=== PATIENT | female | born 1930 | race African-American/Black ===

== ENCOUNTER 2020-02-14 11:52 | Inpatient (IN) | payer MEDICARE, OTHER ==
[~2020-02-14] VITALS: Ht 157.5 cm; Wt 44.5 kg
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
[2020-02-14] MEDS ORDERED: ZYPREXA (14:00)
[2020-02-14] MEDS ORDERED: SEROQUEL (14:00)
[2020-02-14] MEDS ORDERED: DEPAKOTE (14:00)
[2020-02-14] MEDS ORDERED: ACETAMINOPHEN 325 MG TABLET PO PRN (14:30)
[2020-02-14] MEDS ORDERED: TEMAZEPAM 7.5 MG CAPSULE PO PRN (14:30)
[2020-02-14] MEDS ORDERED: MAG HYDROX/AL HYDROX/SIMETH 30 ML UDC PO PRN (14:30)
[2020-02-14] MEDS ORDERED: MAGNESIUM HYDROXIDE 30 ML UDC PO PRN (14:30)
[2020-02-14] MEDS ORDERED: BLOOD SUGAR DIAGNOSTIC 1 EACH STRIP IN ONE (14:30)
--- NOTE | 2020-02-14 15:00 | NUR ---
RN-CO: DR PANG GAVE ADMITTING ORDERS.
[2020-02-14 15:30] VITALS: BP 151/63
[2020-02-14 16:00] VITALS: BP 151/63
--- NOTE | 2020-02-14 16:31 | NUR ---
RN-CO: PATIENT REFUSED MRSA SWAB, SHE IS ANGRY AND COMBATIVE .
[2020-02-14] MEDS: LORAZEPAM 0.5 MG TABLET PO PRN (20:14)
--- NOTE | 2020-02-14 20:14 | NUR ---
GPS RN NOTE: ANXIETY/AGITATION PATIENT IS AGITATED, YELLING, SCREAMING, ANXIOUS, PARANOID, RESTLESS, HYPERVERBAL AT THIS TIME, CURSING STAFF. PRN ATIVAN 0.5 MG , PO GIVEN, WILL CONTINUE TO MONITOR .
--- NOTE | 2020-02-14 20:25 | NUR ---
RN NOTES: PT. IS VERY UNCOOERTIVE SCREMING YELLING ,RESTLESS, CURSING STAFF ATIVAN WAS GIVEN BUT PT. SPAT OUT ATIVAN , WILL CONTINUE TO ENCOURAGE THE PATIENT TO CALM DOWN BY REDIRECTING HER OFFERED SNACKS AND JUICES BUT PT. REFUSED, VERY NON COMPLIANT WITH CARE AND MEDICATION.
[2020-02-14 20:36] VITALS: BP 154/63
--- NOTE | 2020-02-14 20:50 | NUR ---
NURSE NOTES: ATIVAN MEDICATION WASTED ON THE OMNICELL SINCE PATIENT SPIT THE MEDICATION OUT. WITNESSED BY ODIN STEVENS- CHARGE NURSE FOR THIS SHIFT. Addendum: 02/14/20 at 2103 by FADY HOLMAN RN CHARGE NURSE HILDA NEWBY ,UNABLE TO COSIGN ON OMNICELL FOR WASTE MEDS ATIVAN 0.5 MG , 1 TAB.
[2020-02-14 22:07] VITALS: BP 128/65
--- NOTE | 2020-02-15 03:57 | NUR ---
RN NOTES:PT. REFUSED FULL BODY SKIN ASSESSMENT, AND PICTURES TAKEN PT. REFUSED MRSA SWAB , PT. REFUSED URINE SPECIMEN , ENCOURAGE X3 PT. STRONGLY REFUSED , PER PT. I NO NEED TO CHECK ,I AM OK . PT. BEHAVIOR VERY UNCCOERTIVE YELLS ,AGGRESSIVE , WILL CONTINUE WITH CARE.
--- NOTE | 2020-02-15 07:16 | NUR ---
RN NURSE NOTES: NOTIFIED PHARMACY REGARDING ATIVAN MEDICATION WASTED ON THE OMNICELL PATIENT SPIT THE MEDICATION OUT AND NON ADMINISTER, CHARGE NURSE HILDA NEWBY ,UNABLE TO COSIGN ON OMNICELL FOR WASTE MEDS ATIVAN 0.5 MG , 1 TAB ,.
[2020-02-15 08:00] VITALS: BP 129/67
--- NOTE | 2020-02-15 13:20 | NUR ---
RN NOTES COLLECTED UA CLEAN CATCH, AND MRSA OF NARES SPECIMEN, CALLED LAB FOR SPINNER FRAME.
--- NOTE | 2020-02-15 15:00 | NUR ---
rn notes patient refused lab work x3. Patient state "blood i can not give, because of against my presybeterian".
[2020-02-15 15:39] LABS: APPEARANCE,URINE CLEAR (CLEAR); BILIRUBIN,URINE NEGATIVE (NEGATIVE); BLOOD, URINE NEGATIVE Ery/uL (NEGATIVE); COLOR,URINE YELLOW (YELLOW); KETONES,URINE TRACE (NEGATIVE); LEUKOCYTE ESTERASE ,URINE NEGATIVE (NEGATIVE); NITRITE, URINE NEGATIVE (NEGATIVE); PROTEIN,URINE NEGATIVE (NEGATIVE); UGLUCOSE NEGATIVE (NEGATIVE); UROBILINOGEN,URINE 0.2 EU/dL (0.2)
[2020-02-15 15:50] LABS: BACTERIA,URINE N0 /HPF (None Seen); RBC,URINE 0-2 /HPF (0-2); WBC,URINE 0-2 /HPF (0-3)
[2020-02-15 16:00] VITALS: BP 157/70
[2020-02-15 20:17] VITALS: BP 135/70
[2020-02-15] MEDS: DIVALPROEX SODIUM 125 MG CAP.SPRINK PO SCH (20:53)
[2020-02-15] MEDS: OLANZAPINE 2.5 MG TABLET PO SCH (22:03)
[2020-02-16 08:00] VITALS: BP 123/62
[2020-02-16] MEDS: DIVALPROEX SODIUM 125 MG CAP.SPRINK PO SCH ×2 (08:36→21:00)
--- NOTE | 2020-02-16 12:56 | NUR ---
Initial Discharge Plan: Pt currently resides in her apartment located at [address] [place], [place] [address]n [facility] [place] [address]; ([phone]). Per pt, she would like to live in [place]. Per Faby ([phone]), pts caregiver, pt needs to be in a SNF. SW will work with the pt and the MD regarding appropriate discharge planning. SW will form a safe and proper discharge plan.
--- NOTE | 2020-02-16 12:59 | NUR ---
Caregiver Contact: LAURA called the pts caregiver, Faby ([phone]), who stated that she has only been the caregiver for 3 weeks as she lived on the same floor as the pt. She stated that the pt would benefit from being in a Dementia unit and she stated that the pt wants to be in the [facility]. LAURA recommended [facility] due to those reasons but stated that she will need to speak to the MD.
[2020-02-16] MEDS: LORAZEPAM 0.5 MG TABLET PO PRN (14:03)
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
[2020-02-16 20:21] VITALS: BP 167/69
[2020-02-16 21:00] VITALS: BP 158/68
--- NOTE | 2020-02-16 21:17 | NUR ---
GPS RN NOTES: PATIENT INITIALLY TOOK HER MEDICATIONS- DEPAKOTE- HOWEVER, PATIENT TRIED TO CHEEK IT. WHEN MORTGAGE LENDER NOTICED, PATIENT SPIT THE MEDICATION OUT. SO MORTGAGE LENDER, TRIED TO ASK THE MEDICATION SO IT CAN BE WASTED PROPERLY, PATIENT TRIED TO HIDE IT IN HER HANDS AND COVER IT WITH HER SHEETS. ANOTHER NURSE CAME IN (NATY) TO HELP REMOVED THE MEDICINE AWAY FROM PATIENT'S POSSESSION. PER PATIENT "YOU GUYS GIVE IT TO ME, SO THIS IS MINE NOW!" NATY HOWEVER, RECOVERED THE MEDICATION AND WASTED IT PROPERLY IN THE BIN.
[2020-02-16] MEDS: OLANZAPINE 2.5 MG TABLET PO SCH (22:00)
--- NOTE | 2020-02-17 04:48 | NUR ---
GPS RN NOTES: PATIENT WOKE UP FROM SLEEP AND APPROACHED THE RESERVATIONIST ASKING FOR THE DATE AND TIME. SHE APPEARS CONFUSED, HOWEVER SHE WAS NICE AND KIND AT THIS MOMENT. REALITY ORIENTATION DONE. SHE REQUESTED FOR SOME SNACKS- PROVIDED SOME SALTINE CRACKERS. WILL CONTINUE TO MONITOR PATIENT FOR MOOD, SAFETY AND BEHAVIOR.
[2020-02-17 08:00] VITALS: BP 128/60
[2020-02-17] MEDS: DIVALPROEX SODIUM 125 MG CAP.SPRINK PO SCH ×3 (08:28→21:00)
--- NOTE | 2020-02-17 09:00 | NUR ---
RN NOTE- PT VERBALLY AGGRESSIVE SWEARING STATES "IM NOT TAKING THE STUPID MEDICINE." REFUSES RX THIS MORNING. OPPOSITIONAL. ABRASIVE. PARANOID DELUSIONAL. PO INTAKE POOR THIS MORNING. WITHDRAWN
--- NOTE | 2020-02-17 15:33 | NUR ---
GROUP NOTE: Group Topic: Depression SW invited patient to participate in group, however patient refused to join at this time due to not wanting to get out of bed.
[2020-02-17 16:00] VITALS: BP 126/62
--- NOTE | 2020-02-17 16:40 | NUR ---
RN-Co: DR PANG ORDERED TO DISCHARGE THE PATIENT TOMORROW 02/18/20 AT 5:30 AM AND DISCONTINUE HOLD ON THE SAME DATE AND TIME NOTED. PATIENT WILL BE GOING HOME WITH A TAXI VOUCHER GIVEN TO HER BY THE STAFF IN ORDER TO TAKE HER TO [employer]. TICKET WAS ALSO PRINTED AND GIVEN TO HER BY ANNE-MARIE SANCHEZ.COPY IN THE CHART. SHE IS ALERT AND ORIENTED X 4. ABLE TO MAKE DECISION FOR HERSELF AND SHE CAN TAKE CARE OF HERSELF. SHE DENIES SUICIDAL AND HOMICIDAL IDEATIONS. SHE DENIES AUDITORY AND VISUAL HALLUCINATIONS. HER AFFECT IS APPROPRIATE AND BRIGHT WHEN APPROACH. PRESCRIPTION WRITTEN BY DR PANG WILL BE GIVEN AND EXPLAINED TO HER. Addendum: 02/17/20 at 1754 by MARIS MACDONALD RN RN-CO: ERROR IN CHARTING
--- NOTE | 2020-02-17 17:13 | NUR ---
RN NOTE- STANDING BY PTS DOOR, STARTED YELLING AT ME THAT IM 'RUDE, DON'T BELONG IN HER ROOM' . TRIED TO CLOSE DOOR ON MY HAND. I REDIRECTED HER. ESCALATED PT YELLING. I REMOVED MYSELF FROM HER PRESENCE. PT SPOKE W MANUAL WRITER ABOUT MY 'BEHAVIOR' PT ULTIMATELY CALMED
[2020-02-17 19:59] VITALS: BP 123/60
[2020-02-17] MEDS: OLANZAPINE 2.5 MG TABLET PO SCH (21:27)
--- NOTE | 2020-02-17 21:27 | NUR ---
GPS RN NOTE: PT. REFUSED SCHEDULED 2100 DEPAKOTE 125 MG AND 2200 ZYPREXA 2.5 MG. STATES "I DON'T BELIEVE IN MEDICATIONS." EXPLAINED RISKS AND BENEFITS. OFFERED 3 TIMES AND PT. STILL REFUSED. WILL CONTINUE TO MONITOR FOR SAFETY AND BEHAVIOR
[2020-02-18 08:00] VITALS: BP 123/56
[2020-02-18] MEDS: DIVALPROEX SODIUM 125 MG CAP.SPRINK PO SCH ×2 (08:18→21:09)
--- NOTE | 2020-02-18 08:45 | NUR ---
PATIENT REFUSED AM MEDICATION, EXPLAINED RISKS AND BENEFITS X3 , PATIENT CONT REFUSING, NO S/SX DISTRESS NOTED, WILL CONT TO MONITOR FOR SAFETY AND BEHAVIOR Q15 MIN
--- NOTE | 2020-02-18 15:50 | NUR ---
Group Note: SW encouraged the pt to attend group therapy on 02/18/20 on the topic of discharge planning. Pt is not appropriate for group at this time as she is confused and disorganized. Pt appears to be in a labile mood and presents with an anxious affect.
[2020-02-18 16:00] VITALS: BP 130/56
[2020-02-18 19:44] VITALS: BP 125/61
[2020-02-18 19:58] VITALS: BP 125/61
[2020-02-18] MEDS: OLANZAPINE 2.5 MG TABLET PO SCH (22:07)
--- NOTE | 2020-02-18 22:07 | NUR ---
GPS RN NOTE: MED COMPLAINT PATIENT TOOK HER DEPAKOTE & ZYPREXA SCHEDULED. PATIENT REFUSED TO TAKE MEDS AT FIRST & STATED," THESES MEDICINES ARE NOT FOR ME, THEY MAKE ME TO FORGET." EXPLANATIONS & ENCOURAGEMENT PROVIDED & PATIENT AGREED TO TAKE HER MEDICINES & TOLERATED WELL. OFFERED JUICE & SNACK BUT PT PREFERRED TO DRINK JUICE ONLY AT THIS TIME. WILL CONTINUE TO MONITOR FOR ANY CHANGES.
[2020-02-19 08:30] VITALS: BP 115/59
--- NOTE | 2020-02-19 08:30 | NUR ---
KARTHIKEYAN RN NOTES PT FITST REFUSED MEDS AND THEN WAS COMPLAINT
[2020-02-19] MEDS: DIVALPROEX SODIUM 125 MG CAP.SPRINK PO SCH ×4 (08:53→16:51)
--- NOTE | 2020-02-19 12:42 | NUR ---
KARTHIKEYAN RN NOTES PT REFUSED HER 13:00 MEDS
[2020-02-19] MEDS ORDERED: OLANZAPINE 2.5 MG TABLET PO SCH (13:00)
[2020-02-19] MEDS ORDERED: SERTRALINE HCL 25 MG TABLET PO SCH (13:00)
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
--- NOTE | 2020-02-19 14:25 | NUR ---
GROUP NOTE: Topic: Adapting to our environment. SW encouraged patient to participate in group therapy. Patient presents with labile mood and unable to participate in group therapy at this time.
[2020-02-19 16:00] VITALS: BP 134/54
--- NOTE | 2020-02-19 16:52 | NUR ---
KARTHIKEYAN RN NOTES PT IS REFUSING HER MEDS
[2020-02-19] MEDS: OLANZAPINE 2.5 MG TABLET PO SCH (22:00)
--- NOTE | 2020-02-19 22:17 | NUR ---
GPS RN NOTES: PATIENT REFUSED HER MEDICATION ON SCHEDULE- ZYPREXA 2.5 MG- NURSE INFORMED HER THAT SHE TOOK IT THE NIGHT PRIOR. ACCORDING TO THE PATIENT "OH, I KNOW I TOOK IT YESTERDAY, BUT I WANNA TRY TO SEE MYSELF, HOW IT GOES WITH OUT IT". IT IS THEN CHARTED NON ADMINISTERED ON THE EMAR.
[2020-02-20 08:00] VITALS: BP 110/68
[2020-02-20] MEDS: DIVALPROEX SODIUM 125 MG CAP.SPRINK PO SCH ×3 (08:20→17:02)
--- NOTE | 2020-02-20 08:20 | NUR ---
GPS/RN PT REFUSED DEPAKOTE 125MG PO SCHEDULED FOR 0900. OFFERED X3
[2020-02-20] MEDS: HALOPERIDOL 1 MG TABLET PO SCH ×2 (12:27→13:35)
[2020-02-20] MEDS: HALOPERIDOL LACTATE INJ 5 MG/ML VIAL IM PRN (13:21)
--- NOTE | 2020-02-20 13:35 | NUR ---
GPS/RN PT AGREED TO TAKE HALDOL 1MG PO. INJECTABLE HALDOL WASTED
--- NOTE | 2020-02-20 15:09 | NUR ---
GROUP NOTE: Topic: Learning coping skills. agricultural service worker attempted to invite patient to participate in group. Patient presented disorganized and disoriented and unable to engage in a meaningful conversation.
[2020-02-20 16:00] VITALS: BP 156/56
[2020-02-20 21:14] VITALS: BP 120/66
[2020-02-21 08:00] VITALS: BP 125/68
[2020-02-21] MEDS: HALOPERIDOL 1 MG TABLET PO SCH ×2 (08:39→16:54)
[2020-02-21] MEDS: DIVALPROEX SODIUM 125 MG CAP.SPRINK PO SCH ×3 (08:39→16:54)
[2020-02-21] MEDS: HALOPERIDOL LACTATE INJ 5 MG/ML VIAL IM PRN ×2 (08:39→17:19)
--- NOTE | 2020-02-21 12:23 | NUR ---
GPS/RN PT REFUSED ALL PO MEDS IN AM(HALDOL IM WAS GIVEN ORDERED) AND REFUSED DEPAKOTE SCHEDULED FOR 1300 WELL. OFFERED X3
[2020-02-21 16:00] VITALS: BP 140/65
--- NOTE | 2020-02-21 17:41 | NUR ---
GPS/RN PT REFUSED 1700 PO MEDS. OFFERED X3. HALDOL IM GIVEN INSTEAD.
[2020-02-21 21:03] VITALS: BP 149/62
[2020-02-22 08:00] VITALS: BP 142/59
[2020-02-22] MEDS: HALOPERIDOL LACTATE INJ 5 MG/ML VIAL IM PRN ×2 (08:26→17:42)
[2020-02-22] MEDS: DIVALPROEX SODIUM 125 MG CAP.SPRINK PO SCH ×3 (08:26→17:00)
[2020-02-22] MEDS: HALOPERIDOL 1 MG TABLET PO SCH ×2 (08:26→17:00)
[2020-02-22] MEDS: ENSURE ENLIVE 237 ML LIQUID (VANILLA) PO SCH ×2 (13:30→17:42)
--- NOTE | 2020-02-22 13:45 | NUR ---
GPS/RN PT REFUSED 1300 MEDS OFFERED X3
[2020-02-22 15:55] VITALS: BP 113/52
[2020-02-22 20:00] VITALS: BP 128/59
--- NOTE | 2020-02-23 06:52 | NUR ---
GPS RN NOTES: PATIENT IN THE ROOM, AWAKE, APPEARS RESTED. HAND BANDER APPROACHED IF SHE CAN TAKE PICTURES ON HER RIGHT ELBOW- PER PATIENT THE NURSE TOOK PICTURES OF HER ELBOW ALREADY AND SHE DOES NOT WANNA DO IT AGAIN. HAND BANDER THEN CONFIRMED- IT WAS PLACED IN THE CHART THAT THE PREVIOUS NURSE TOOK PICTURE OF THAT SAID SPOT.
[2020-02-23 08:00] VITALS: BP 141/55
[2020-02-23] MEDS: HALOPERIDOL 1 MG TABLET PO SCH ×2 (08:47→16:44)
[2020-02-23] MEDS: DIVALPROEX SODIUM 125 MG CAP.SPRINK PO SCH ×2 (08:47→16:44)
[2020-02-23] MEDS: ENSURE ENLIVE 237 ML LIQUID (VANILLA) PO SCH ×3 (08:47→16:50)
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
--- NOTE | 2020-02-23 15:35 | NUR ---
Group Note: SW invited patient to participate in group therapy to discuss the topic of Problem Solving. Patient presents confused and with disorganized thought process. SW encouraged patient to participate in group and interact with peers. Patient remain isolative and refused to engage.
[2020-02-23 16:00] VITALS: BP 150/55
[2020-02-23 20:00] VITALS: BP 148/52
--- NOTE | 2020-02-24 05:53 | NUR ---
GPS RN NOTE PATIENT REFUSED AM LABS X 3 & GOT CANCELLED.
--- NOTE | 2020-02-24 06:48 | NUR ---
GPS RN CLOSING NOTE PATIENT SLEPT WELL AT NIGHT. NO CHANGE OF CONDITION NOTED.SAFETY PRECAUTIONS IN PLACE. WILL ENDORSE TO AM RN FOR CONTINUITY OF CARE.
[2020-02-24 08:00] VITALS: BP 128/52
[2020-02-24] MEDS: HALOPERIDOL 1 MG TABLET PO SCH ×2 (08:29→16:43)
[2020-02-24] MEDS: DIVALPROEX SODIUM 125 MG CAP.SPRINK PO SCH ×2 (08:29→16:43)
[2020-02-24] MEDS: ENSURE ENLIVE 237 ML LIQUID (VANILLA) PO SCH ×3 (08:31→16:46)
--- NOTE | 2020-02-24 15:51 | NUR ---
Group Note: SW encouraged pt to attend group therapy on 02/24/20 on the topic of discharge planning. Pt refused to attend the group but was willing to participate in individual. SW informed her that the plan is to send the pt to a prison in [place] and the pt became content and stated that she knows that area very well. LAURA stated that she will keep her informed.
[2020-02-24 16:00] VITALS: BP 142/60
[2020-02-24 20:11] VITALS: BP 146/55
[2020-02-25 08:00] VITALS: BP 119/58
[2020-02-25] MEDS: DIVALPROEX SODIUM 125 MG CAP.SPRINK PO SCH ×2 (09:18→16:48)
[2020-02-25] MEDS: HALOPERIDOL 1 MG TABLET PO SCH ×2 (09:18→16:48)
[2020-02-25] MEDS: ENSURE ENLIVE 237 ML LIQUID (VANILLA) PO SCH ×3 (09:19→16:48)
--- NOTE | 2020-02-25 11:29 | NUR ---
Group Note: SW encouraged pt to participate in group on the topic of dealing with anxiety. Patient shouted "I am good!" and asked to closer her door.
--- NOTE | 2020-02-25 14:58 | NUR ---
Caregiver Contact: SW called the pts caregiver, Faby ([phone]), and informed her that the pt is Riesed and then informed her that the pt agreed to go to a SNF. Pts caregiver expressed gratitude and stated that she would drop off some belongings to the hospital.
[2020-02-25 16:00] VITALS: BP 164/66
[2020-02-25 19:33] VITALS: BP 160/44
[2020-02-26 08:00] VITALS: BP 146/53
[2020-02-26] MEDS: HALOPERIDOL 1 MG TABLET PO SCH ×2 (08:50→16:11)
[2020-02-26] MEDS: DIVALPROEX SODIUM 125 MG CAP.SPRINK PO SCH ×2 (08:50→16:11)
--- NOTE | 2020-02-26 08:54 | NUR ---
SNF Referral: LAURA faxed a referral to [facility] with attn to Nasra/Claudy to the fax number: [phone].
[2020-02-26] MEDS: ENSURE ENLIVE 237 ML LIQUID (VANILLA) PO SCH ×3 (08:56→16:11)
--- NOTE | 2020-02-26 15:40 | NUR ---
Caregiver Contact: Pts caregiver, Faby ([phone]), called the SW and stated that she wanted an update regarding the pts case. SW stated that the pt is going to be discharged to [facility] on Sunday. Caregiver stated that she will come by and drop off some clothes for the pt.
[2020-02-26 16:00] VITALS: BP 153/63
[2020-02-26 20:13] VITALS: BP 153/64
[2020-02-27 08:30] VITALS: BP 122/54
--- NOTE | 2020-02-27 08:32 | NUR ---
SNF Contact: SW contacted Nasra ([phone]) from [facility] who stated that the pt was accepted to their facility and will need a COVID test.
[2020-02-27] MEDS: DIVALPROEX SODIUM 125 MG CAP.SPRINK PO SCH ×2 (08:33→16:30)
[2020-02-27] MEDS: HALOPERIDOL 1 MG TABLET PO SCH ×2 (08:33→16:30)
[2020-02-27] MEDS: ENSURE ENLIVE 237 ML LIQUID (VANILLA) PO SCH ×3 (08:34→16:31)
[2020-02-27] MEDS ORDERED: HALOPERIDOL LACTATE INJ 5 MG/ML VIAL IM PRN (13:30)
[2020-02-27 16:00] VITALS: BP 162/57
--- NOTE | 2020-02-27 16:00 | NUR ---
RN NOTES REFUSED COVID TEST, WILL TRY TO CONVINCE AGAIN LATER, WILL CONTINUE TO MONITOR.
--- NOTE | 2020-02-27 19:20 | NUR ---
RN NOTES: PT.,PARANOID , GUARDED, CONFUSED, HYPERVERBAL UNCOOERTIVE , NON COMPLIANT WITH CARE , WILL CONTINUITY WITH CARE.
[2020-02-27 19:46] VITALS: BP 131/50
[2020-02-27 21:00] VITALS: BP 127/63
--- NOTE | 2020-02-28 05:54 | NUR ---
GPS RN NOTE: COVID-19 SPECIMEN COLLECTED INFORMED TO THE PATIENT ABOUT BLOOD DRAW & COVID-19 SPECIMEN COLLECTION, PATIENT REFUSED BUT AFTER PROVIDING EXPLANATIONS & REDIRECTIONS, PATIENT AGREED TO HAVE BLOOD DRAW & COVID-19 SPECIMEN DONE. SALES OPERATIONS ASSISTANT MELISSA BLOOD & COVID-19 SPECIMEN COLLECTED BY RN & SENT TO THE LAB. WILL ENDORSE TO AM RN TO FOLLOW UP.
[2020-02-28 06:43] LABS: BASOPHILS # (AUTO) 0.1 /CMM (0.0-0.2); BASOPHILS % (AUTO) 1.4 % (0.0-2.0); EOSINOPHILS % (AUTO) 3.5 % (0.0-6.0); HEMATOCRIT 34 % (33-45); HEMOGLOBIN 11.4 g/dL (11.5-14.8); LYMPHOCYTES # (AUTO) 1.7 /CMM (0.8-4.8); LYMPHOCYTES % (AUTO) 32.5 % (20.0-44.0); MEAN CORPUSCULAR HGB CONC 34 g/dl (31.0-36.0); MEAN CORPUSCULAR VOLUME 93 fL (82-100); MONOCYTES # (AUTO) 0.6 /CMM (0.1-1.30); MONOCYTES % (AUTO) 11.2 % (2.0-12.0); NEUTROPHILS # (AUTO) 2.8 /CMM (1.8-8.9); NEUTROPHILS % (AUTO) 51.4 % (43.0-81.0); PLATELET COUNT (AUTO) 187 /CMM (150-450); RED BLOOD CELL COUNT(AUTO) 3.63 MIL/uL (4.0-5.2); WHITE BLOOD COUNT (AUTO) 5.4 K/uL (4.3-11.0)
--- NOTE | 2020-02-28 06:59 | NUR ---
GPS RN CLOSING NOTE PATIENT SLEPT WELL AT NIGHT. NO CHANGE OF CONDITION NOTED. NO ACUTE DISTRESS NOTED. WILL ENDORSE TO AM RN FOR CONTINUITY OF CARE.
[2020-02-28 07:03] LABS: BILIRUBIN,TOTAL 0.2 mg/dL (0.2-1.0); CALCIUM, SERUM 8.9 mg/dL (8.5-10.1); CREATININE 0.8 mg/dL (0.6-1.3); MAGNESIUM 2.4 mg/dL (1.8-2.4); PHOSPHORUS 3.6 mg/dL (2.5-4.9); TOTAL PROTEIN, SERUM 6.3 g/dL (6.4-8.2)
[2020-02-28 08:00] VITALS: BP 118/61
[2020-02-28] MEDS: HALOPERIDOL 1 MG TABLET PO SCH ×4 (08:36→17:35)
[2020-02-28] MEDS: DIVALPROEX SODIUM 125 MG CAP.SPRINK PO SCH ×4 (08:36→17:35)
[2020-02-28] MEDS: ENSURE ENLIVE 237 ML LIQUID (VANILLA) PO SCH ×3 (08:37→17:36)
--- NOTE | 2020-02-28 13:23 | NUR ---
RN NOTE: PT REFUSED 1300 HALDOL AND DEPAKOTE. IM HALDOL PREPARED. PT EVENTUALLY AGREED TO PO MEDICATION.
[2020-02-28 16:00] VITALS: BP 131/50
[2020-02-28] MEDS: busPIRone 5 MG TABLET PO SCH (17:35)
[2020-02-28 20:31] VITALS: BP 152/80
[2020-02-28 21:30] VITALS: BP 135/77
[2020-02-29 08:00] VITALS: BP 152/60
[2020-02-29] MEDS: ENSURE ENLIVE 237 ML LIQUID (VANILLA) PO SCH ×3 (08:49→17:06)
[2020-02-29] MEDS: HALOPERIDOL 1 MG TABLET PO SCH ×3 (08:49→17:06)
[2020-02-29] MEDS: DIVALPROEX SODIUM 125 MG CAP.SPRINK PO SCH ×3 (08:49→17:07)
[2020-02-29] MEDS: busPIRone 5 MG TABLET PO SCH ×2 (08:49→17:07)
[2020-02-29] MEDS ORDERED: HALOPERIDOL DECANOATE IM 100 MG/ML AMPUL IM ONE (11:52)
--- NOTE | 2020-02-29 12:38 | NUR ---
RN NOTE: HALDOL DECONOATE HADOL DECONOATE 12.5 MG IM ADMINISTERED TO LEFT GLUT. PT RACIEL WELL
[2020-02-29 15:54] VITALS: BP 139/59
[2020-02-29 20:00] VITALS: BP 153/71
[2020-02-29 21:20] VITALS: BP 137/74
--- NOTE | 2020-03-01 03:23 | NUR ---
GPS RN NOTE PATIENT IS SLEEPING COMFORTABLY AT THIS TIME. NO BEHAVIOR EPISODE NOTED.
[2020-03-01 08:00] VITALS: BP 130/52
[2020-03-01] MEDS: DIVALPROEX SODIUM 125 MG CAP.SPRINK PO SCH ×2 (08:37→12:20)
[2020-03-01] MEDS: HALOPERIDOL 1 MG TABLET PO SCH ×2 (08:37→12:20)
[2020-03-01] MEDS: busPIRone 5 MG TABLET PO SCH (08:37)
[2020-03-01] MEDS: ENSURE ENLIVE 237 ML LIQUID (VANILLA) PO SCH ×2 (08:38→12:19)
--- NOTE | 2020-03-01 10:10 | NUR ---
SNF Contact: LAURA faxed a COVID clearance to [facility] with attn to Nasra/Claudy to the fax number: [phone].
--- NOTE | 2020-03-01 10:15 | NUR ---
Caregiver Contact: LAURA called the pts caregiver, Faby ([phone]), and left her a voicemail stating that the pt is going to be discharged to [facility] today.
--- NOTE | 2020-03-01 11:33 | NUR ---
Caregiver Contact: Pts caregiver, Faby ([phone]), called the SW and the SW stated that she called just to inform her the pt is being discharged to [facility] today.
--- NOTE | 2020-03-01 11:46 | NUR ---
Discharge Note: Pt was discharged to [facility] located at [address] [place] [address] ([phone]). Pt will be transported via [facility] at 12pm. Pts friend and caregiver, Faby ([phone]), was informed about the discharge. Upon discharge, the pt appeared to be in a euthymic mood and presented with a calm affect. Pt appeared to be alert and oriented x4 (time, place, self and situation). Pt denied visual/auditory hallucinations and denied suicidal/homicidal ideation. Pt appeared to be disheveled and ungroomed. Pt appeared to be ambulatory with an unsteady gait. Pt will be under the care of her psychiatrist, Dr. Nieto, located at [address] [address], [place] [address]; and refined syrup operator, Dr. Caldwell, located at [address] [facility] [address] [address]; . The multidisciplinary exit care form was done, printed, signed, and given to the patient.
--- NOTE | 2020-03-01 14:40 | NUR ---
PICK REMOVER NOTE 89 YEAR OLD FEMALE DISCHARGED TO [facility] IN STABLE CONDITION. COMPLIANT WITH MEDICATIONS, COOPERATIVE WITH TREATMENT PLANS. PATIENT DENIES SI/HI AND INSTRUCTED TO GO TO THE CLOSEST ER IF DEVELOPING SI/HI. BEHAVIOR IMPROVED, PSYCHIATRIC TREATMENT PLANS MET, MEDICAL TREATMENT PLANS DEFERRED FOR CONTINUAL MONITORING. EDUCATED PT ABOUT AFTER CARE PLAN AND COPY PROVIDED. PERSONAL BELONGING RETURNED TO PATIENT. MEDICATIONS RECONCILED WITH DR. PANG AND DR BOWER. REPORT GIVEN TO NIDIA NEWBY AT [facility] FOR CONTINUITY OF CARE. PT UNABLE TO SIGN DISCHARGE PAPERWORK. WOUND PICTURES TAKEN AND DOCUMENTED IN CHART BY FACILITIES LOCATOR. PT LEFT THE UNIT AT 1440 VIA GURNEY WITH EMS
== END 2020-03-01 14:40 | DRG 885 ==
LOC: GPS 13:19
PROVIDERS: ADMIT Psychiatry & Neurology Psychosomatic Medicine; ATTEND Registered Nurse
DX: F29 Unspecified psychosis not due to a substance or known physiological condition (principal); F01.50 Vascular dementia, unspecified severity, without behavioral disturbance, psychotic disturbance, mood disturbance, and anxiety; F23 Brief psychotic disorder; Z68.1 Body mass index [BMI] 19.9 or less, adult; E44.0 Moderate protein-calorie malnutrition; F41.9 Anxiety disorder, unspecified; F32.9 Major depressive disorder, single episode, unspecified; I10 Essential (primary) hypertension; F03.90 Unspecified dementia, unspecified severity, without behavioral disturbance, psychotic disturbance, mood disturbance, and anxiety; F25.9 Schizoaffective disorder, unspecified
CPT/HCPCS: 36415; 80053-TC; 80164-TC; 81000-TC; 83735-TC; 84100-TC; 85025-TC; 87081-TC; 97116-TC; 97530-TC; J1630; J1631